=== PATIENT | female | born 1965 | race Caucasian/White ===

== ENCOUNTER 2018-07-27 21:30 | Emergency (ER) | payer SELFPAY ==
[~2018-07-27] VITALS: Ht 162.6 cm; Wt 63.5 kg
[2018-07-27 21:30] VITALS: BP 142/85
--- NOTE | 2018-07-27 21:30 | NUR ---
PT ON BED DELAY. NO AVAILABLE BEDS AT THIS TIME. ER MD JEROME EVALUATED PT IN [facility].
--- NOTE | 2018-07-27 21:56 | NUR ---
PT BROUGHT TO BED 8 BY [facility]
--- NOTE | 2018-07-27 22:00 | NUR ---
BIBA FOR ETOH/ ALOC. PER EMS PT TOOK MULTIPLE SHOTS. PT WITH N/V. GCS 3, UNRESPONSIVE TO PAINFUL STIMULI, PER EMS PT WITHDRAWED TO STERNAL RUB AND AMMONIA. WITH REGULAR RESPIRATIONS, EVEN AND UNLABORED. PMH: DONNIE
[2018-07-27] MEDS ORDERED: NACL 0.9% 1,000 ML IV ONE (22:15)
[2018-07-27] MEDS ORDERED: ONDANSETRON 4 MG/2 ML VIAL IVP ONE (22:20)
[2018-07-28 00:19] VITALS: BP 138/73
--- NOTE | 2018-07-28 00:19 | NUR ---
Patient discharged with v/s stable. Written and verbal after care instructions given and explained. Patient verbalized understanding. Ambulatory with steady gait. All questions addressed prior to discharge. Advised to follow up with PMD.
== END 2018-07-28 00:19 | disposition home or self-care (01) ==
LOC: MED 21:30
DX: F10.129 Alcohol abuse with intoxication, unspecified (principal); R40.4 Transient alteration of awareness; R11.10 Vomiting, unspecified; E11.9 Type 2 diabetes mellitus without complications
CPT/HCPCS: 36415; 96361; 96374; 99283; G0482; J2405; J7030